=== PATIENT | female | born 1995 | race Caucasian/White ===

== ENCOUNTER 2021-05-09 20:18 | Emergency (ER) | payer OTHER ==
[~2021-05-09] VITALS: Ht 160 cm; Wt 54.5 kg
[2021-05-09 21:06] LABS: COLLECTION METHOD CLEAN CATCH
[2021-05-09 21:21] LABS: MUCOUS Present /lpf; PH 5 (5-8); SQUAMOUS EPITHELIAL 0-2 /hpf; URINE APPEARANCE Clear; URINE BACTERIA Rare /hpf; URINE BILIRUBIN Negative (NEGATIVE); URINE BLOOD Negative (NEGATIVE); URINE COLOR Yellow; URINE GLUCOSE Negative (NEGATIVE); URINE KETONE Negative (NEGATIVE); URINE LEUKOCYTE ESTERASE 3+ (NEGATIVE); URINE NITRATE Negative (NEGATIVE); URINE PROTEIN(semi-quant) Negative (NEGATIVE); URINE UROBILINOGEN Negative (NEGATIVE)
[2021-05-09] MEDS ORDERED: ZOLOFT 25MG25 MG PO (22:51)
[2021-05-09] MEDS ORDERED: MACROBID 1100 MG/CAP PO (22:58)
[2021-05-09 23:26] VITALS: BP 111/75; PULSE 89; TEMP 98
== END 2021-05-09 23:26 | disposition home or self-care (01) ==
LOC: COL.ER 20:18
PROVIDERS: Emergency Medicine
DX: N39.0 Urinary tract infection, site not specified (principal)